=== PATIENT | female | born 1980 | race Caucasian/White ===

== ENCOUNTER 2017-07-30 22:35 | Emergency (ER) | payer OTHER ==
[2017-07-30 23:16] VITALS: BP 130/85; PULSE 81
--- NOTE | 2017-07-30 23:25 | ERPHSYRPT ---
- History of Present Illness Time Seen by Provider: 07/30/17 23:13 Source: patient Exam Limitations: no limitations Patient Subjective Stated Complaint: pt states she hit herself in the face with the car door while opening it. denies loc. Triage Nursing Assessment: pt alert and oriented, asnwers qeustions approp. pt ambulatory with steady gait noted. respirations nonlabored with lungs cta. pupils equal and reactive. bilat upper and lower ext strength wnl. Physician History: ABOUT 9 HOURS AGO PT WAS OPENING HER CAR DOOR AND HIT THE LEFT SIDE OF HER FACE WITH THE DOOR WITH RESULTANT 4MM LACERATION AND SWELLING OF THE LEFT FACIAL CHEEK BELOW THE LEFT LOWER EYELID. PT STATES SHE SAW STARS JUST AFTER IMPACT AND ABOUT 90 MINUTES AGO STARTED WITH PHOTOPHOBIA. PT DENIES VOMITING, NUMBNESS , WEAKNESS, CHEST PAIN, NECK PAIN, BACK PAIN, ABDOMINAL PAIN. Allergies/Adverse Reactions: erythromycin estolate [From Ilosone] Allergy (Verified 07/30/17 23:16) codeine Adverse Reaction (Verified 07/30/17 23:16) ibuprofen Adverse Reaction (Verified 07/30/17 23:16) Home Medications: Liraglutide [Victoza 2-Adolfo] 1.2 mg SQ DAILY 07/30/17 [History] Omeprazole 20 MG [Prilosec 20 mg] 20 mg PO DAILY 07/30/17 [History] Tapentadol HCl [Nucynta] 50 mg PO DAILY 07/30/17 [History] Hx Tetanus, Diphtheria Vaccination/Date Given: No (unknown) Hx Influenza Vaccination/Date Given: No Hx Pneumococcal Vaccination/Date Given: No Immunizations Up to Date: Yes - Review of Systems Eyes: Photophobia Respiratory: No Dyspnea Cardiac: No Chest Pain Abdominal/Gastrointestinal: No Abdominal Pain, No Vomiting Skin: Other (4MM LACERATION TO LEFT FACIAL CHEEK TODAY) Neurological: Other ("SAW STARS" AFTER HITTING HER FACE WITH A CAR DOOR TODAY.) All Other Systems: Reviewed and Negative - Past Medical History Pertinent Past Medical History: Yes Neurological History: No Pertinent History ENT History: No Pertinent History Cardiac History: Myocardial Infarction ([place]) Respiratory History: Asthma Endocrine Medical History: No Pertinent History, Diabetes Type II Musculoskeletal History: Fibromyalgia, Fractures, Rheumatoid Arthritis GI Medical History: GERD History: No Pertinent History Psycho-Social History: Depression, Anxiety Female Reproductive Disorders: No Pertinent History Other Medical History: [place] x 2 - Past Surgical History Past Surgical History: Yes Neuro Surgical History: No Pertinent History Cardiac: Cardiac Catheterization Respiratory: No Pertinent History Gastrointestinal: Cholecystectomy Female Surgical History: Dilation & Curettage, Tubal Ligation, Other Other Surgical History: uterine ablation, TONSILLECTOMY - Social History Smoking Status: Never smoker How long have you smoked: 15 YEARS Exposure to second hand smoke: No Alcohol Use: None Drug Use: none Patient Lives Alone: No Significant Family History: no pertinent family hx - Female History Hx Last Menstrual Period: uterine ablation Hx Now: No - Nursing Vital Signs Nursing Vital Signs: Initial Vital Signs Temperature 98.0 F 07/30/17 23:03 Pulse Rate 81 07/30/17 23:03 Blood Pressure 130/85 07/30/17 23:03 Pain Scale Pain Intensity 4 - Physical Exam General Appearance: alert Eye Exam: PERRL/EOMI, eyes nml inspection Ears, Nose, Throat Exam: pharynx normal, moist mucous membranes Neck Exam: normal inspection Respiratory Exam: lungs clear Cardiovascular Exam: normal heart sounds Gastrointestinal/Abdomen Exam: soft, normal bowel sounds Back Exam: normal range of motion Extremity Exam: normal inspection, normal range of motion, No pedal edema Neurologic Exam: alert, cooperative, sensation nml, No motor deficits Skin Exam: laceration (4MM LACERATION OVER MILD EDEMA/TENDERNESS OF LEFT FACIAL CHEEK BELOW LEFT LOWER EYELID) - Course Nursing assessment & vital signs reviewed: Yes - CT Exams Maxillofacial Bones CT Interpretation: Tele-radiologist Report (NORMAL MAXILLOFACIAL CT) Head CT Interpretation: Tele-radiologist Report (NORMAL HEAD/BRAIN CT) Ordered Tests: Active Orders 24 hr Category Date Time Status FACIAL BONES WO CONTRAST [CT] Stat Exams 07/30/17 23:29 Taken HEAD WITHOUT CONTRAST [CT] Stat Exams 07/30/17 23:29 Taken - Departure Time of Disposition: 00:39 Departure Disposition: Home Clinical Impression: FACIAL/HEAD CONTUSION, 4 MM LACERATION TO LEFT FACIAL CHEEK. Condition: Stable Critical Care Time: No Referrals: GAURAV SEARS [Primary Care Provider] - Instructions: Closed Head Injury Additional Instructions: FOLLOW UP WITH PRIVATE DOCTOR TOMORROW. NEOSPORIN & BANDAGE DAILY TO LEFT FACIAL CHEEK LACERATION FOR 1 WEEK. Prescriptions: Cephalexin Monohydrate [Keflex] 500 mg PO TID #20 capsule
[2017-07-31] MEDS ORDERED: BACIGUENT PACKET TP ONE (00:40)
[2017-07-31] MEDS ORDERED: KEFLEX 500 MG PO ONE (00:44)
--- NOTE | 2017-07-31 09:20 | XRAY ---
Indication: Left-sided pain following car door injury. Multiple contiguous axial images obtained through the head without contrast. Comparison: January 26, 2014. Stable left paramedian posterior fossa 2 cm arachnoid cyst. Remaining CT head again demonstrates normal brain parenchyma, ventricles, and bony calvarium. Visualized paranasal sinuses and mastoid air cells clear. Impression: Stable left posterior fossa arachnoid cyst. Again no acute intracranial abnormalities. Comment: Preliminary interpretation was made by [facility]. Arachnoid cyst not reported and is a incidental finding. CT DI 49.71
--- NOTE | 2017-07-31 09:23 | XRAY ---
Indication: Left maxillary pain following car door injury. Multiple contiguous axial images obtained through the facial bones. Sagittal and coronal reformatted images obtained. Comparison: None No acute fracture, suspicious bony lesions, or radiopaque foreign body. Orbits including roof, del angel, and floors intact. Paranasal sinuses and nasal passages are clear. Moderate nasal septal deviation to the left. Visualized noncontrasted soft tissues are unremarkable. CT head reported separately. Impression: Negative acute fracture. Incidental nasal septal deviation. Comment: Preliminary interpretation was made by [facility]. No discrepancy. CT DI 59.47
== END 2017-07-31 00:57 | disposition home or self-care (01) ==
LOC: ED 22:35
DX: S00.83XA Contusion of other part of head, initial encounter (principal); S01.412A Laceration without foreign body of left cheek and temporomandibular area, initial encounter; E11.9 Type 2 diabetes mellitus without complications; I25.2 Old myocardial infarction; W22.8XXA Striking against or struck by other objects, initial encounter
CPT/HCPCS: 70450; 70486; 99284

== ENCOUNTER 2018-03-02 17:32 | Emergency (ER) | payer OTHER ==
[2018-03-02 17:53] VITALS: BP 145/90
--- NOTE | 2018-03-02 18:05 | ERPHSYRPT ---
- History of Present Illness Time Seen by Provider: 03/02/18 17:49 Source: patient Patient Subjective Stated Complaint: pt reports stubbing toes of right foot last night and then tripping over vaccuum with it today-reports pain Triage Nursing Assessment: pt pink warm and [id number] obvious deformity-no obvious injury-pt states that she is supposed to schedule cherrie for surgery to right foot on monday-pedal pulse present and marked Physician History: CC: right foot injury HX: 37 y/o patient of Dr Wadsworth. She has hx of DM and had recent left foot surgeries. She stubbed the right foot on a concrete lion last night and struck the right foot with a sweeper today. She has pain in the right foot. No swelling or bruising. No redness or cuts. Allergies/Adverse Reactions: erythromycin estolate [From Ilosone] Allergy (Verified 03/02/18 17:53) codeine Adverse Reaction (Verified 03/02/18 17:53) ibuprofen Adverse Reaction (Verified 03/02/18 17:53) Home Medications: Liraglutide [Victoza 2-Adolfo] 1.2 mg SQ DAILY 07/30/17 [History] Omeprazole 20 MG [Prilosec 20 mg] 20 mg PO DAILY 07/30/17 [History] Tapentadol HCl [Nucynta] 50 mg PO DAILY 07/30/17 [History] Hx Tetanus, Diphtheria Vaccination/Date Given: No Hx Influenza Vaccination/Date Given: No Hx Pneumococcal Vaccination/Date Given: No Immunizations Up to Date: Yes - Review of Systems Constitutional: No Fever, No Chills Musculoskeletal: Injury (right foot), No Back Pain, No Neck Pain Neurological: No Focal Weakness, No Parasthesia - Past Medical History Pertinent Past Medical History: Yes Neurological History: No Pertinent History ENT History: No Pertinent History Cardiac History: Myocardial Infarction ([place]) Respiratory History: Asthma Endocrine Medical History: No Pertinent History, Diabetes Type II Musculoskeletal History: Fibromyalgia, Fractures, Rheumatoid Arthritis GI Medical History: GERD History: No Pertinent History Psycho-Social History: Depression, Anxiety Female Reproductive Disorders: No Pertinent History Other Medical History: [place] x 2 - Past Surgical History Past Surgical History: Yes Neuro Surgical History: No Pertinent History Cardiac: Cardiac Catheterization Respiratory: No Pertinent History Gastrointestinal: Cholecystectomy Female Surgical History: Dilation & Curettage, Tubal Ligation, Other Other Surgical History: uterine ablation, TONSILLECTOMY - Social History Smoking Status: Never smoker How long have you smoked: 15 YEARS Exposure to second hand smoke: No Alcohol Use: None Drug Use: none Patient Lives Alone: No Significant Family History: no pertinent family hx - Female History Hx Now: No - Nursing Vital Signs Nursing Vital Signs: Initial Vital Signs Temperature 98.0 F 03/02/18 17:52 Pulse Rate 91 H 03/02/18 17:52 Respiratory Rate 18 03/02/18 17:52 Blood Pressure 145/90 03/02/18 17:52 O2 Sat by Pulse Oximetry 100 03/02/18 17:52 Pain Scale Pain Intensity 7 - Physical Exam General Appearance: alert Eyes, Ears, Nose, Throat Exam: moist mucous membranes Neck Exam: supple Cardiovascular/Respiratory Exam: regular rate/rhythm Neuro/Tendon Exam: normal sensation, normal motor functions Mental Status Exam: alert, oriented x 3, cooperative Skin Exam: warm, dry SpO2 Interpretation: normal SpO2: 100 Oxygen Delivery: Room Air Comments: right spin tank tender. Not red. Pulse intact. No ankle tenderness. - Course Nursing assessment & vital signs reviewed: Yes Ordered Tests: Active Orders 24 hr Category Date Time Status Splint STAT Care 03/02/18 17:54 Active FOOT (MINIMUM 3 VIEWS) Stat Exams 03/02/18 17:54 Ordered - Progress Progress Note: 03/02/18 18:39 She already has pain medication at home. Will use darco shoe. She is not tender over the 1st MTP sesamoid so does not appear to be fx. Contusion instr given. Counseled pt/family regarding: diagnosis, need for follow-up, rad results - Departure Time of Disposition: 18:40 Departure Disposition: Home Clinical Impression: Contusion of right foot Qualifiers: Encounter type: initial encounter Qualified Code(s): S90.31XA - Contusion of right foot, initial encounter Condition: Stable Critical Care Time: No Referrals: GAURAV SEARS [Primary Care Provider] - ERINN HULL [NON-STAFF PHY W/O PRIVILEGES] - Instructions: Contusion (DC), Foot Sprain (DC) Additional Instructions: Darco post op shoe. Ice and elevate. Follow up with Dr Hull.
[2018-03-02 18:47] VITALS: PULSE 70; O2SAT 99
--- NOTE | 2018-03-02 20:44 | XRAY ---
Indication: Pain following injury. Comparison: July 20, 2011. 3 nonweightbearing views of the right foot demonstrates mild forefoot soft tissue swelling. No other bony, articular, or soft tissue abnormalities.
== END 2018-03-02 18:47 | disposition home or self-care (01) ==
LOC: ED 17:32
DX: S90.31XA Contusion of right foot, initial encounter (principal); W22.8XXA Striking against or struck by other objects, initial encounter; Y93.E3 Activity, vacuuming; Z79.899 Other long term (current) drug therapy
CPT/HCPCS: 73630; 99282; 99283

== ENCOUNTER 2019-12-10 05:42 | Day surgery (SDC) | payer OTHER ==
[2019-12-10] MEDS ORDERED: Lactated Ringers 1,000 ML IV SCH (06:00)
[2019-12-10] MEDS ORDERED: DIPRIVAN 200 MG/20 ML IV ONE (08:11)
[2019-12-10] MEDS ORDERED: Versed 2 MG/2 ML Injection ONE (08:14)
[2019-12-10] MEDS ORDERED: Lactated Ringers 1,000 ML IV ONE (08:17)
--- NOTE | 2019-12-10 08:52 | OP ---
SURGERY DATE/TIME: 12/10/2019811 PREOPERATIVE DIAGNOSIS: Epigastric pain and nausea. POSTOPERATIVE DIAGNOSIS: Gastroparesis and mild gastritis. PROCEDURE: Esophagogastroduodenoscopy with biopsy. SURGEON: Dr. Trotter. ANESTHESIA: Medications were given by the anesthesia department. BRIEF HISTORY: The patient is a 39 year old white female presenting now for endoscopic evaluation. She reports that she had epigastric pain and nauseas after eating just a couple of bites of food. The patient reports that this has been going on for some time. She was felt the need to have endoscopic evaluation. She was apprised of the risks of the procedure including the risk of perforation, phlebitis, untoward reaction to medication, bleeding and missed lesions. The patient verbalized her understanding and desired to have the procedure performed. DESCRIPTION OF PROCEDURE: The patient was given the medications by the anesthesia department. She had continuous pulse oximetry, ECG monitoring, intermittent blood pressure monitoring and tidal CO2 monitoring during the examination. She was placed in the left lateral decubitus position. A bite block was placed. The flexible Olympus gastroscope was used to intubate the oropharynx. The scope was easily introduced in the esophagus which appeared to be normal throughout its length. The stomach was entered where normal gastric rugal folds were seen. There was a fairly moderate to large amounts of retained food stuffs in the stomach. The scope was passed along the greater curvature of the stomach to the antrum. The pylorus was encountered and intubated. The duodenum was inspected and found to be essentially normal. The scope is then withdrawn towards the stomach. A retroflex view was obtained of the lesser curvature, fundus and cardia regions of the stomach and these appeared to be essentially normal other than the retained food stuffs. The scope was then redirected towards the gastric antrum where biopsies were obtained to rule out the presence of Helicobacter pylori-type organisms. The scope was then removed from the patient who tolerated the procedure well and was sent back to outpatient recovery in good condition.
[2019-12-10 09:04] VITALS: O2SAT 99
[2019-12-10 09:25] VITALS: BP 156/82; PULSE 72
== END 2019-12-10 09:25 | disposition home or self-care (01) ==
LOC: SDC 05:42
PROVIDERS: ATTEND Family Medicine
DX: K31.84 Gastroparesis (principal); K29.70 Gastritis, unspecified, without bleeding; R10.13 Epigastric pain; E11.9 Type 2 diabetes mellitus without complications; Z79.899 Other long term (current) drug therapy
CPT/HCPCS: 82962; 88305; J2250; J2704

== ENCOUNTER 2022-06-09 12:14 | Emergency (ER) | payer OTHER ==
[2022-06-09 12:48] VITALS: O2SAT 98
--- NOTE | 2022-06-09 13:12 | XRAY ---
Indication: Pain. Comparison: April 28, 2014. 3 view right hand again demonstrates normal bones, articulation, and soft tissues.
--- NOTE | 2022-06-09 13:27 | ERPHSYRPT ---
- History of Present Illness Time Seen by Provider: 06/09/22 12:39 Source: patient Exam Limitations: no limitations Patient Subjective Stated Complaint: Pt states "I was walking my dog and had the leash wrapped around my hand and the dog jerked and the leash tightened on my hand." Triage Nursing Assessment: Pt presnted aert and oriented X 3, skin pwd Pt ambulates with an upright steady gait, able to speak in clear full sentences. Pt right hand swollen tender and bruised. Physician History: 42 years old right-handed dominant female presented to the ER with chief complaint of right hand pain after she was holding her dog with a leash and dog jerked off with tightening of lesion on her hand and since then having moderate intensity sharp pain in the metacarpophalangeal area of second third and fifth digit with some contusion. Pain is more with movements of the fingers. No injury. Occurred: just prior to arrival Method of Injury: other Quality: sharpness Severity of Pain-Max: moderate Severity of Pain-Current: moderate Extremities Pain Location: hand: right Modifying Factors: Improves With: immobilization. Worsens With: movement Associated Symptoms: none Allergies/Adverse Reactions: erythromycin estolate [From Ilosone] Allergy (Verified 12/10/19 06:02) unknown Home Medications: Omeprazole 20 MG [Prilosec 20 mg] 20 mg PO DAILY 07/30/17 [History] Albuterol Sulfate [Albuterol Sulfate Hfa] 8.5 gm IH Q4HPRN PRN 12/09/19 [History] Cyclobenzaprine HCl 10 mg [Cyclobenzaprine 10 MG] 10 mg PO TID PRN 12/09/19 [History] Exenatide Microspheres [Bydureon Bcise] 2 mg SQ UD 12/09/19 [History] Nitroglycerin 0.4 mg (Ed) [Nitrostat 0.4 MG (ED)] 0.4 mg SL UD 12/09/19 [History] Verapamil HCl [Verapamil ER Pm] 200 mg PO DAILY 12/09/19 [History] Hydrocodone/Acetaminophen [Hydrocodon-Acetaminoph 7.5-325] 7.5 mg PO UD 12/10/19 [History] Scopolamine [Transderm-Scop] 1 each TD UD 12/10/19 [History] Hx Tetanus, Diphtheria Vaccination/Date Given: No Hx Influenza Vaccination/Date Given: No Hx Pneumococcal Vaccination/Date Given: No Immunizations Up to Date: Yes Travel Risk - International Travel Have you traveled outside of the country in past 3 weeks: No - Coronavirus Screening Are you exhibiting any of the following symptoms?: No Close contact with a COVID-19 positive Pt in past 14-21 Days: No - Vaccine Status Have you recieved a Covid-19 vaccination: No - Review of Systems Constitutional: No Symptoms Ears, Nose, & Throat: No Symptoms Respiratory: No Symptoms Cardiac: No Symptoms Abdominal/Gastrointestinal: No Symptoms Genitourinary Symptoms: No Symptoms Musculoskeletal: Injury, Joint Pain Skin: No Symptoms Neurological: No Symptoms Psychological: No Symptoms Endocrine: No Symptoms - Past Medical History Pertinent Past Medical History: Yes Neurological History: No Pertinent History ENT History: No Pertinent History Cardiac History: Coronary Artery Disease, Myocardial Infarction ([place]) Respiratory History: Asthma Endocrine Medical History: Diabetes Type II Musculoskeletal History: Fibromyalgia, Fractures, Rheumatoid Arthritis GI Medical History: GERD History: No Pertinent History Psycho-Social History: Depression, Anxiety Female Reproductive Disorders: No Pertinent History Other Medical History: [place] x 2-2014 and 2015 - Past Surgical History Past Surgical History: Yes Neuro Surgical History: No Pertinent History Cardiac: Cardiac Catheterization Respiratory: No Pertinent History Gastrointestinal: Cholecystectomy Genitourinary: No Pertinent History Musculoskeletal: No Pertinent History Female Surgical History: Dilation & Curettage, Tubal Ligation, Other Other Surgical History: uterine ablation (about 4 yrs ago), TONSILLECTOMY - Social History Smoking Status: Current every day smoker How long have you smoked: 15 YEARS Exposure to second hand smoke: No Alcohol Use: None Drug Use: none Patient Lives Alone: No Significant Family History: no pertinent family hx - Female History Hx Now: No - Nursing Vital Signs Nursing Vital Signs: Initial Vital Signs Temperature 97.6 F 06/09/22 12:47 Pulse Rate 76 06/09/22 12:47 Respiratory Rate 20 06/09/22 12:47 Blood Pressure 139/72 06/09/22 12:47 O2 Sat by Pulse Oximetry 98 06/09/22 12:47 Pain Scale Pain Intensity 6 - Physical Exam General Appearance: no apparent distress Neck Exam: normal inspection, full range of motion Cardiovascular/Respiratory Exam: normal breath sounds, regular rate/rhythm Wrist Exam: normal inspection, non-tender, no evidence of injury, normal ROM Hand Exam: bone tenderness (Local tenderness), limited ROM (Metacarpophalangeal joint of right second third and fifth digit. Bruise on knuckles), swelling Neuro/Tendon Exam: normal sensation Mental Status Exam: alert, oriented x 3, cooperative Skin Exam: normal color SpO2 Interpretation: normal SpO2: 98 O2 Delivery: Room Air Ordered Tests: Active Orders 24 hr Category Date Time Status HAND (MINIMUM 3 VIEWS) Stat Exams 06/09/22 12:30 Completed - Progress Progress: unchanged Progress Note: 06/09/22 13:25 X-rays negative for fracture dislocation. Offered pain medications which she declined. She is on pain management. Offered splinting hand which she refused as well. Recommended intermittent ice application and outpatient Ortho phytic follow-up. Counseled pt/family regarding: need for follow-up, rad results - Departure Departure Disposition: Home Clinical Impression: Hand contusion Condition: Stable Critical Care Time: No Referrals: GAURAV SEARS [Primary Care Provider] - Follow Up with PCP/3 days ORTHO - RACHNA PEREZ NP [NON-STAFF PHY W/O PRIVILEGES] - Follow up/PCP as directed (Call tomorrow for appointment for reevaluation) Instructions: Hand Fracture (DC) Additional Instructions: Continue with your pain medications. Elevation, intermittent ice application. Follow-up with orthopedic surgery for reevaluation. Return to ER for any worsening.
[2022-06-09 13:36] VITALS: BP 128/70; PULSE 72
== END 2022-06-09 13:41 | disposition home or self-care (01) ==
LOC: ED 12:14
DX: S60.221A Contusion of right hand, initial encounter (principal); W49.09XA Other specified item causing external constriction, initial encounter; Y93.K1 Activity, walking an animal; M79.641 Pain in right hand; E11.9 Type 2 diabetes mellitus without complications; Z72.0 Tobacco use; Z79.891 Long term (current) use of opiate analgesic; Z79.899 Other long term (current) drug therapy; Z28.310 Unvaccinated for COVID-19
CPT/HCPCS: 73130; 99282

== ENCOUNTER 2023-12-08 19:19 | Emergency (ER) | payer OTHER ==
[2023-12-08 19:27] VITALS: RESP 18; TEMP 97.9; O2SAT 97
--- NOTE | 2023-12-08 19:33 | ERPHSYRPT ---
- History of Present Illness Time Seen by Provider: 12/08/23 19:33 Source: patient, family Exam Limitations: no limitations Physician History: This is a 43-year-old white female patient Dr. Trotter who has a history of gastroesophageal reflux disease and was helping her father put a new showerhead in place when it was accidentally dropped and fell onto the top of her left foot. There is significant pain, bruising present and swelling. Patient is wanting to determine whether or not there is a fracture present. Patient can weight-bear but it hurts to do so. Method of Injury: direct blow Occurred: this evening Quality: constant, aching Severity of Pain-Max: moderate Severity of Pain-Current: moderate Lower Extremities Pain: foot: left (Dorsal aspect) Modifying Factors: Improves With: movement Associated Symptoms: other (Hurts to bear weight but can do so.) Allergies/Adverse Reactions: erythromycin estolate [From Ilosone] Allergy (Verified 12/08/23 19:51) unknown Home Medications: Omeprazole 20 MG [Prilosec 20 mg] 20 mg PO DAILY 07/30/17 [History] Albuterol Sulfate [Albuterol Sulfate Hfa] 8.5 gm IH Q4HPRN PRN 12/09/19 [History] Cyclobenzaprine HCl 10 mg [Cyclobenzaprine 10 MG] 10 mg PO TID PRN 12/09/19 [History] Nitroglycerin 0.4 mg (Ed) [Nitrostat 0.4 MG (ED)] 0.4 mg SL UD 12/09/19 [History] Hydrocodone/Acetaminophen [Hydrocodon-Acetaminoph 7.5-325] 7.5 mg PO TID PRN PRN 12/10/19 [History] Scopolamine [Transderm-Scop] 1 each TD UD 12/10/19 [History] Buprenorphine HCl [Belbuca] 900 mcg BC BID 12/08/23 [History] Frovatriptan Succinate 2.5 mg PO BID PRN PRN 12/08/23 [History] Hx Tetanus, Diphtheria Vaccination/Date Given: No Hx Influenza Vaccination/Date Given: No Hx Pneumococcal Vaccination/Date Given: No Travel Risk - International Travel Have you traveled outside of the country in past 3 weeks: No - Coronavirus Screening Are you exhibiting any of the following symptoms?: No Close contact with a COVID-19 positive Pt in past 14-21 Days: No - Vaccine Status Have you recieved a Covid-19 vaccination: No - Review of Systems Constitutional: No Symptoms Eyes: No Symptoms Ears, Nose, & Throat: No Symptoms Respiratory: No Symptoms Cardiac: No Symptoms Abdominal/Gastrointestinal: No Symptoms Genitourinary Symptoms: No Symptoms Musculoskeletal: Injury (Dorsal aspect left foot) Skin: No Symptoms Neurological: No Symptoms Psychological: No Symptoms Endocrine: No Symptoms Hematologic/Lymphatic: No Symptoms Immunological/Allergic: No Symptoms All Other Systems: Reviewed and Negative - Past Medical History Pertinent Past Medical History: Yes Neurological History: Peripheral Neuropathy ENT History: No Pertinent History Cardiac History: Arrhythmia, High Cholesterol, Myocardial Infarction (NM) Respiratory History: Asthma Endocrine Medical History: Diabetes Type II Musculoskeletal History: Arthritis, Fibromyalgia, Rheumatoid Arthritis GI Medical History: GERD History: No Pertinent History Psycho-Social History: Depression, Anxiety Female Reproductive Disorders: No Pertinent History Other Medical History: NM x 2-2014 and 2015 - Past Surgical History Past Surgical History: Yes Neuro Surgical History: No Pertinent History Cardiac: Cardiac Catheterization Respiratory: No Pertinent History Gastrointestinal: Cholecystectomy Genitourinary: No Pertinent History Musculoskeletal: No Pertinent History Female Surgical History: Dilation & Curettage, Tubal Ligation, Other Other Surgical History: uterine ablation (about 4 yrs ago), TONSILLECTOMY - Social History Smoking Status: Current every day smoker How long have you smoked: 15 YEARS Exposure to second hand smoke: No Alcohol Use: None Drug Use: none Patient Lives Alone: No Significant Family History: no pertinent family hx - Female History Hx Now: No - Nursing Vital Signs Nursing Vital Signs: Initial Vital Signs Temperature 97.9 F 12/08/23 19:26 Pulse Rate 93 H 12/08/23 19:26 Respiratory Rate 18 12/08/23 19:26 Blood Pressure 158/96 12/08/23 19:26 O2 Sat by Pulse Oximetry 97 12/08/23 19:26 Pain Scale Pain Intensity 7 - Physical Exam General Appearance: no apparent distress, alert, anxiety Eyes, Ears, Nose, Throat Exam: normal ENT inspection, moist mucous membranes Neck Exam: normal inspection, non-tender, supple, full range of motion Cardiovascular/Respiratory Exam: chest non-tender, no respiratory distress Gastrointestinal/Abdominal Exam: non-tender Back Exam: normal inspection, normal range of motion, No CVA tenderness, No vertebral tenderness Hips Exam: bilateral: non-tender, normal inspection, normal range of motion, no evidence of injury Legs Exam: bilateral leg: non-tender, normal inspection, normal range of motion, no evidence of injury Knees Exam: bilateral knee: non-tender, normal inspection, normal range of motion, no evidence of injury Ankle Exam: bilateral ankle: non-tender, normal inspection, normal range of motion, no evidence of injury Foot Exam: right foot: non-tender, normal inspection, normal range of motion, no evidence of injury, left foot: deformity (Dorsal aspect), ecchymosis (Dorsal aspect), soft tissue tenderness (Dorsal aspect), swelling (Dorsal aspect) Neuro/Tendon Exam: normal sensation, normal motor functions, normal tendon functions, responds to pain, no evidence tendon injury Mental Status Exam: alert, oriented x 3, cooperative Skin Exam: normal color, warm, dry SpO2 Interpretation: normal SpO2: 97 O2 Delivery: Room Air - Course Nursing assessment & vital signs reviewed: Yes Ordered Tests: Active Orders 24 hr Category Date Time Status FOOT (MINIMUM 3 VIEWS) Stat Exams 12/08/23 19:25 Taken - Progress Progress: unchanged Progress Note: 12/08/23 20:52 This patient's medical issue is 1 of low complexity. The level of complexity in the workup performed is based on review of the patient's past medical history, review the patient's medication list, reviewed patient's drug allergy list, history present illness and physical findings on examination. The workup in this patient includes x-ray of the patient's left foot. I interpreted the x-ray of the left foot. I do not appreciate an acute fracture or dislocation. This was discussed with the patient. She is aware that a final read will be done by the radiologist and if it differs from what I have interpreted she will get a phone call. 12/08/23 20:55 Counseled pt/family regarding: diagnosis, need for follow-up, rad results Medical Desision Making - Independent Historian Additional History obtained from: Relative/friend - Diagnostic Testing Diagnostic test were ordered, analyzed, and reviewed by me: Yes Radiological Interpretation: Interpreted by me - Risk of complications Minimal Risk: Minimal risk of morbidity - Departure Departure Disposition: Home Clinical Impression: Contusion of left foot Condition: Stable Critical Care Time: No Referrals: GAURAV TROTTER [Primary Care Provider] - Follow up/PCP as directed Additional Instructions: Take Tylenol and ibuprofen for pain control. Ice pack or ice bath left foot 3 times a day. Follow-up with your primary care provider for persistent symptoms on 12/11/2023. If the radiologist final interpretation is different than my interpretation, you will receive a phone call.
[2023-12-08 19:36] VITALS: BP 136/88; PULSE 79
--- NOTE | 2023-12-08 21:15 | XRAY ---
Indication: Pain and swelling following injury. Comparison: None 3 nonweightbearing views left foot demonstrates anterior soft tissue swelling without acute fracture/dislocation. Incidental old 5th metatarsal fracture and tiny plantar heel spur. No other bony, articular, or soft tissue abnormalities.
== END 2023-12-08 21:03 | disposition home or self-care (01) ==
LOC: ED 19:19
DX: S90.32XA Contusion of left foot, initial encounter (principal); W20.8XXA Other cause of strike by thrown, projected or falling object, initial encounter; Y93.E9 Activity, other interior property and clothing maintenance; Y92.002 Bathroom of unspecified non-institutional (private) residence as the place of occurrence of the external cause; E78.5 Hyperlipidemia, unspecified; E11.42 Type 2 diabetes mellitus with diabetic polyneuropathy; Z79.891 Long term (current) use of opiate analgesic; Z79.899 Other long term (current) drug therapy; Z28.310 Unvaccinated for COVID-19; Z72.0 Tobacco use
CPT/HCPCS: 73630; 99282